=== PATIENT | male | born 1955 | race Caucasian/White ===

== ENCOUNTER 2019-11-21 15:55 | Emergency (ER) | payer MEDICARE ==
[~2019-11-21] VITALS: Ht 172.7 cm; Wt 88.3 kg
--- NOTE | 2019-11-21 16:45 | NUR ---
[employer]: PT TO ROOM FROM [facility]
--- NOTE | 2019-11-21 17:16 | NUR ---
TASK RN: FIRST CONTACT WITH PT. PT SITTING UP IN [facility], NAD NOTED. PT REPORTS SORE THROAT X TWO DAYS AND CHEST PRESSURE TODAY. CHEST PRESSURE IS INTERMITTENT AND DOES NOT RADIATE; IS NOT ASSOCIATED WITH DIZZINESS, WEAKNESS, NAUSEA, OR DIAPHORESIS. DENIES PRODUCTIVE COUGH/FEVER. RECENT TRAVEL BUT DENIES UNILATERAL LEG PAIN/SWELLING. BP/SPO2/ECG MONITORING IN PLACE. NSR ON MONITOR. SPO2 >90% ON RA. REPORT TO PRIMARY RNPHONG.
--- NOTE | 2019-11-21 18:25 | NUR ---
ERP AND CXR AT BEDSIDE.
[2019-11-21 20:03] VITALS: BP 107/60
== END 2019-11-21 20:04 | disposition home or self-care (01) ==
LOC: ED 18:39
DX: J02.8 Acute pharyngitis due to other specified organisms (principal); B97.89 Other viral agents as the cause of diseases classified elsewhere; R05 Cough; R09.81 Nasal congestion; R94.31 Abnormal electrocardiogram [ECG] [EKG]; I10 Essential (primary) hypertension; E11.9 Type 2 diabetes mellitus without complications
CPT/HCPCS: 36415; 71045; 87081; 87635; 87880; 93005; 99285

== ENCOUNTER 2019-11-24 14:27 | Emergency (ER) | payer MEDICARE ==
[~2019-11-24] VITALS: Ht 172.7 cm; Wt 88.1 kg
[2019-11-24 14:37] VITALS: BP 111/64
== END 2019-11-24 15:36 | disposition home or self-care (01) ==
LOC: ED 15:00
DX: J02.9 Acute pharyngitis, unspecified (principal); Z20.828 Contact with and (suspected) exposure to other viral communicable diseases
CPT/HCPCS: 36415; 87635; 99283